=== PATIENT | male | born 1945 ===

== ENCOUNTER 2025-06-05 18:54 | Inpatient (IN) | payer MEDICARE, OTHER ==
[~2025-06-05] VITALS: Ht 167.6 cm; Wt 76.7 kg
[~2025-06-05 18:54] MED LIST: AMIO400T5 PO; DILT30TA35 PO; INSU100I19 SQ; INSU100V11 SQ; METO50TA16 PO; SEVE800T8 PO; TRAM50TA PO
[2025-06-05] MEDS ORDERED: ONDANSETRON 4 MG/2 ML VIAL ONE (20:39)
[2025-06-05] MEDS ORDERED: MORPHINE SULFATE 2 MG/1 ML DISP.SYRIN ONE (20:40)
[2025-06-05 20:48] LABS: PLATELET COUNT (AUTO) 156 K/uL (152-348); RED BLOOD CELL COUNT(AUTO) 2.89 MIL/uL (4.06-5.63); RED CELL DISTRIBUTION WIDTH 16.2 % (12.1-16.2); WHITE BLOOD COUNT (AUTO) 7.7 K/uL (3.6-10.2)
[2025-06-05] MEDS: MORPHINE SULFATE 2 MG/1 ML DISP.SYRIN IV ONE (20:49)
[2025-06-05] MEDS: ONDANSETRON 4 MG/2 ML VIAL IV ONE (20:49)
[2025-06-05] MEDS: AMIODARONE HCL IV 150 MG in IV DEXTROSE 5% 100 ML IV ONE (20:58)
[2025-06-05 21:04] LABS: ASPARTATE AMINOTRANSFERASE 6 U/L (15-37); CREATININE 5.0 mg/dL (0.6-1.3); SODIUM SERUM 137 mmol/L (136-145); TOTAL PROTEIN, SERUM 8.0 g/dL (6.4-8.2); UREA NITROGEN, BLOOD 48 mg/dL (7-18)
[2025-06-05] MEDS ORDERED: AMIODARONE HCL 150 MG/3 ML VIAL IV ONE (21:07)
[2025-06-05] MEDS: AMIODARONE HCL IV 450 MG in IV DEXTROSE 5% 250 ML IV PRN (21:27)
[2025-06-05] MEDS ORDERED: VASOPRESSIN 20 UNIT/ML VIAL ONE (23:45)
[2025-06-05] MEDS: VASOPRESSIN 20 UNIT in IV NORMAL SALINE 40 ML IV PRN (23:57)
[2025-06-06] VITALS (95 sets, daily range): BP systolic 70–182; BP diastolic 19–140; TEMP 97.5–100.9; O2SAT 89–98
[2025-06-06] MEDS ORDERED: LACT10SO58 PO (00:42)
[2025-06-06] MEDS ORDERED: LEVO150T8 PO (00:42)
[2025-06-06] MEDS ORDERED: MEGE40TA7 PO (00:42)
[2025-06-06] MEDS ORDERED: LINA5TAB PO (00:42)
[2025-06-06] MEDS ORDERED: LEVO250T59 PO (00:42)
[2025-06-06] MEDS ORDERED: METO-356 PO (00:42)
[2025-06-06] MEDS ORDERED: FERR236T3 PO (00:42)
[2025-06-06] MEDS ORDERED: APIX2.5T PO (01:38)
[2025-06-06] MEDS ORDERED: NOREPINEPHRINE 8MG/NS 250ML 250 ML IV ONE (01:40)
[2025-06-06] MEDS ORDERED: PIPERACILLIN/TAZOBACTAM/D5W 50 ML IV ONE (01:40)
[2025-06-06] MEDS: NOREPINEPHRINE 8MG/NS 250ML 250 ML IV PRN ×3 (01:54→21:29)
[2025-06-06] MEDS: PIPERACILLIN SODIUM/TAZOBACTAM 3.375 G in IV DEXTROSE 5% 50 ML IV ONE (01:54)
[2025-06-06] MEDS ORDERED: AMIODARONE HCL 150 MG/3 ML VIAL IV ONE (03:09)
[2025-06-06] MEDS ORDERED: NOREPINEPHRINE BITARTRATE 8 MG in IV NORMAL SALINE 250 ML IV PRN (03:30)
[2025-06-06] MEDS: AMIODARONE HCL IV 450 MG in IV DEXTROSE 5% 250 ML IV PRN ×2 (03:50→07:44)
[2025-06-06] MEDS ORDERED: VANCOMYCIN HCL 1,500 MG in IV DEXTROSE 5% 500 ML IV ONE (04:15)
[2025-06-06 05:35] LABS: PLATELET COUNT (AUTO) 175 K/uL (152-348); RED BLOOD CELL COUNT(AUTO) 2.96 MIL/uL (4.06-5.63); RED CELL DISTRIBUTION WIDTH 16.3 % (12.1-16.2); WHITE BLOOD COUNT (AUTO) 8.3 K/uL (3.6-10.2)
[2025-06-06 05:42] LABS: CREATININE 5.5 mg/dL (0.6-1.3); SODIUM SERUM 135 mmol/L (136-145); UREA NITROGEN, BLOOD 60 mg/dL (7-18)
[2025-06-06] MEDS ORDERED: VANCOMYCIN HCL 500 MG VIAL ONE (06:30)
[2025-06-06] MEDS ORDERED: VANCOMYCIN 1000 MG VIAL ONE (06:30)
[2025-06-06] MEDS: SEVELAMER CARBONATE 800 MG TABLET PO SCH ×2 (08:41→12:37)
[2025-06-06] MEDS: LACTULOSE 20 G/30 ML LIQUID UDC PO SCH (08:43)
[2025-06-06] MEDS ORDERED: MEGESTROL ACETATE 20 MG TABLET PO SCH (09:00)
[2025-06-06] MEDS ORDERED: APIXABAN 2.5 MG TABLET PO SCH (09:00)
[2025-06-06] MEDS ORDERED: RIFAXIMIN 550 MG TABLET PO SCH (09:00)
[2025-06-06] MEDS ORDERED: LEVOTHYROXINE SODIUM 150 MCG TABLET PO SCH (09:00)
[2025-06-06] MEDS: ALBUMIN HUMAN 25% (12.5 GM/50 ML ) BOTTLE IV ONE (09:21)
[2025-06-06] MEDS ORDERED: AMIO100T4 PO (11:20)
[2025-06-06] MEDS ORDERED: FERR324T4 PO (11:21)
[2025-06-06] MEDS ORDERED: VITA-287 PO (11:24)
[2025-06-06] MEDS ORDERED: THIA100T74 PO (11:25)
[2025-06-06] MEDS ORDERED: FOLI0.8T43 PO (11:25)
[2025-06-06] MEDS ORDERED: ALBU8.5H8 INH (11:44)
[2025-06-06] MEDS: FOLIC ACID/VITAMIN B COMP W-C TABLET PO SCH (12:36)
[2025-06-06] MEDS: THIAMINE HCL 100 MG TABLET PO SCH (12:37)
[2025-06-06] MEDS: ACETAMINOPHEN 500 MG TABLET PO PRN (14:05)
[2025-06-06] MEDS: LEVOTHYROXINE SODIUM 150 MCG TABLET PO SCH (14:05)
[2025-06-06 15:13] LABS: PROTEIN, BODY FLUID 4.8 G/DL
[2025-06-06 15:25] LABS: TOTAL VOLUME,BODY FLUID 2500 mL; WBC, BODY FLUID 15422 /cu. mm (0-200/cu.mm)
[2025-06-06 16:08] LABS: MONOCYTES,BODY FLUID 2 %
[2025-06-06] MEDS: VANCOMYCIN IV 1,000 MG in IV DEXTROSE 5% 250 ML IV ONE (16:18)
[2025-06-06] MEDS ORDERED: ALBUMIN HUMAN 25% 100 ML IV ONE (17:15)
[2025-06-06] MEDS: ALBUMIN HUMAN 25% 100 ML IV ONE (18:02)
[2025-06-06] MEDS: APIXABAN 2.5 MG TABLET PO SCH (21:00)
[2025-06-06] MEDS ORDERED: CEFEPIME HCL 1 G VIAL ONE (23:09)
[2025-06-06] MEDS: CEFEPIME HCL 1 GM in IV DEXTROSE 5% 100 ML IV SCH (23:16)
[2025-06-07] VITALS (57 sets, daily range): BP systolic 88–154; BP diastolic 14–82; TEMP 98.2–100; O2SAT 88–98
[2025-06-07] MEDS ORDERED: PIPERACILLIN/TAZO 2.25 G in IV DEXTROSE 5% 50 ML IV SCH (02:00)
[2025-06-07 05:27] LABS: CREATININE 6.6 mg/dL (0.6-1.3); SODIUM SERUM 134 mmol/L (136-145)
[2025-06-07 05:28] LABS: PLATELET COUNT (AUTO) 188 K/uL (152-348); RED BLOOD CELL COUNT(AUTO) 3.15 MIL/uL (4.06-5.63); RED CELL DISTRIBUTION WIDTH 16.2 % (12.1-16.2); WHITE BLOOD COUNT (AUTO) 10.7 K/uL (3.6-10.2)
[2025-06-07 05:47] LABS: UREA NITROGEN, BLOOD 82 mg/dL (7-18)
[2025-06-07 06:01] LABS: BAND % (MANUAL) 1 % (0-10); LYMPHOCYTES % (MANUAL) 10 % (20-40); NEUTROPHILS % (MANUAL) 89 % (42-75)
[2025-06-07 06:02] LABS: PLATELET ESTIMATE ADEQUATE
[2025-06-07] MEDS ORDERED: DEXTROSE 50% 50 ML DISP.SYRIN IV PRN (08:00)
[2025-06-07] MEDS: BLOOD SUGAR DIAGNOSTIC 1 EACH STRIP VI SCH (11:30)
[2025-06-07] MEDS ORDERED: VANCOMYCIN IV 500 MG in IV DEXTROSE 5% 100 ML IV PRN (12:00)
[2025-06-07] MEDS: MEGESTROL ACETATE 20 MG TABLET PO PRN (13:30)
[2025-06-07] MEDS: VANCOMYCIN IV 500 MG in IV DEXTROSE 5% 100 ML IV ONE (16:07)
[2025-06-07] MEDS: ONDANSETRON 4 MG/2 ML VIAL IV PRN (16:33)
[2025-06-07] MEDS: INSULIN REGULAR, HUMAN 1000 UNIT/10 ML VIAL SQ PRN (18:35)
[2025-06-07] MEDS: CEFEPIME (MAXEPIME) 1 G in IV DEXTROSE 5% 50 ML IV SCH (22:26)
[2025-06-08] VITALS (25 sets, daily range): BP systolic 94–133; BP diastolic 54–71; TEMP 97.5–99.1; O2SAT 88–100
[2025-06-08 05:19] LABS: PLATELET COUNT (AUTO) 153 K/uL (152-348); RED BLOOD CELL COUNT(AUTO) 2.96 MIL/uL (4.06-5.63); RED CELL DISTRIBUTION WIDTH 16.3 % (12.1-16.2); WHITE BLOOD COUNT (AUTO) 10.1 K/uL (3.6-10.2)
[2025-06-08 05:32] LABS: CREATININE 5.0 mg/dL (0.6-1.3); SODIUM SERUM 144 mmol/L (136-145); UREA NITROGEN, BLOOD 68 mg/dL (7-18)
[2025-06-08] MEDS: NEPRO (VANILLA) 237 ML CAN PO SCH (08:36)
[2025-06-08] MEDS: METOPROLOL TARTRATE 25 MG TABLET PO SCH (08:36)
[2025-06-08] MEDS: LINAGLIPTIN 5 MG TABLET PO SCH (09:54)
[2025-06-09 00:44] VITALS: BP 115/54; TEMP 98; O2SAT 97
[2025-06-09 04:52] VITALS: BP 108/55; TEMP 97.7; O2SAT 93
[2025-06-09 07:21] LABS: PLATELET COUNT (AUTO) 160 K/uL (152-348); RED BLOOD CELL COUNT(AUTO) 2.96 MIL/uL (4.06-5.63); RED CELL DISTRIBUTION WIDTH 16.6 % (12.1-16.2); WHITE BLOOD COUNT (AUTO) 9.9 K/uL (3.6-10.2)
[2025-06-09 07:35] LABS: CREATININE 4.3 mg/dL (0.6-1.3); SODIUM SERUM 141 mmol/L (136-145); UREA NITROGEN, BLOOD 60 mg/dL (7-18)
[2025-06-09 07:56] VITALS: BP 114/51; TEMP 97.8; O2SAT 94
[2025-06-09 11:30] VITALS: BP 94/48; TEMP 98.1; O2SAT 97
[2025-06-09 15:27] VITALS: BP 100/54; TEMP 98.4; O2SAT 96
[2025-06-09] MEDS: NEPRO (VANILLA) 237 ML CAN PO SCH (16:56)
[2025-06-09 19:00] VITALS: BP 101/53; TEMP 97.6; O2SAT 94
[2025-06-10] VITALS (7 sets, daily range): BP systolic 93–109; BP diastolic 38–67; TEMP 98.1–99; O2SAT 94–100
[2025-06-10 04:09] LABS: HEPATITIS B SURFACE AG Negative (Negative)
[2025-06-10 05:10] LABS: HEPATITIS B CORE AB, TOTAL Negative (Negative); HEPATITIS B SURFACE AB, QUAL Reactive (.)
[2025-06-10] MEDS: NEPRO (VANILLA) 237 ML CAN PO SCH (09:42)
[2025-06-10] MEDS: METOPROLOL TARTRATE 25 MG TABLET PO SCH (21:17)
[2025-06-11 05:40] VITALS: BP 94/49; TEMP 97.8; O2SAT 91
[2025-06-11 10:02] LABS: PLATELET COUNT (AUTO) 174 K/uL (152-348); RED BLOOD CELL COUNT(AUTO) 2.95 MIL/uL (4.06-5.63); RED CELL DISTRIBUTION WIDTH 16.7 % (12.1-16.2); WHITE BLOOD COUNT (AUTO) 10.7 K/uL (3.6-10.2)
[2025-06-11 10:11] LABS: CREATININE 4.5 mg/dL (0.6-1.3); SODIUM SERUM 145 mmol/L (136-145); UREA NITROGEN, BLOOD 63 mg/dL (7-18)
[2025-06-11 11:32] VITALS: BP 110/62; TEMP 98.3; O2SAT 94
[2025-06-11 16:00] VITALS: BP 115/61; TEMP 98.6; O2SAT 94
[2025-06-11 19:50] VITALS: BP 104/64; TEMP 99.2; O2SAT 99
[2025-06-12 00:54] VITALS: O2SAT 97
[2025-06-12 06:29] VITALS: BP 97/53; TEMP 97.4; O2SAT 95
[2025-06-12 08:01] LABS: PLATELET COUNT (AUTO) 160 K/uL (152-348); RED BLOOD CELL COUNT(AUTO) 2.70 MIL/uL (4.06-5.63); RED CELL DISTRIBUTION WIDTH 16.4 % (12.1-16.2); WHITE BLOOD COUNT (AUTO) 11.2 K/uL (3.6-10.2)
[2025-06-12] MEDS: LACTULOSE 20 G/30 ML LIQUID UDC PO SCH (08:29)
[2025-06-12] MEDS: INSULIN REGULAR, HUMAN 1000 UNIT/10 ML VIAL SQ PRN (08:42)
[2025-06-12] MEDS: METOPROLOL TARTRATE 25 MG TABLET PO SCH (09:00)
[2025-06-12] MEDS ORDERED: DEXTROSE 50% 50 ML DISP.SYRIN IV PRN (11:30)
[2025-06-12] MEDS ORDERED: INSULIN REGULAR, HUMAN 300 UNITS/3 ML VIAL SQ PRN (11:30)
[2025-06-12] MEDS: BLOOD SUGAR DIAGNOSTIC 1 EACH STRIP VI SCH (11:36)
[2025-06-12 12:00] VITALS: BP 92/44; TEMP 97.7; O2SAT 97
[2025-06-12] MEDS: MEDIHONEY= THERAHONEY 1.5 OZ TUBE TOP SCH (13:49)
[2025-06-12 16:00] VITALS: BP 114/58; TEMP 98; O2SAT 99
[2025-06-12 17:18] LABS: CREATININE 5.9 mg/dL (0.6-1.3); SODIUM SERUM 142 mmol/L (136-145)
[2025-06-12 17:19] LABS: UREA NITROGEN, BLOOD 84 mg/dL (7-18)
[2025-06-12] MEDS ORDERED: NOREPINEPHRINE 8MG/NS 250ML 250 ML IV PRN (20:30)
[2025-06-12 21:22] LABS: ABG BASE EXCESS -1.9 mmol/L (-2.0-3.0); ABG HCO3 20.1 mmol/L (21.0-28.0); ABG PCO2 26.4 mmHg (35.0-48.0); ABG PH 7.499 (7.350-7.450); ABG PO2 273.3 mmHg (83.0-108.0); ABG SITE LEFT BRACHIAL; ABG TOTAL HEMOGLOBIN 12.0 G/dL (13.5-17.5); AaDO2 99.7 mmHg; FIO2 100.0 %; FLOW, BLOOD GAS 15.00 L/min (0.00-30.00)
[2025-06-12] MEDS: VANCOMYCIN IV 1,000 MG in IV DEXTROSE 5% 250 ML IV ONE (21:30)
[2025-06-12] MEDS: AMIODARONE HCL IV 150 MG in IV DEXTROSE 5% 100 ML IV ONE (21:45)
[2025-06-12] MEDS: VASOPRESSIN 40 UNIT in IV NORMAL SALINE 40 ML IV PRN (22:42)
[2025-06-12] MEDS: NOREPINEPHRINE 8MG/NS 250ML 250 ML IV PRN (22:57)
[2025-06-13] VITALS (78 sets, daily range): BP systolic 64–149; BP diastolic 16–104; TEMP 98–100; O2SAT 94–100
[2025-06-13 01:03] LABS: ABG BASE EXCESS -1.5 mmol/L (-2.0-3.0); ABG HCO3 21.0 mmol/L (21.0-28.0); ABG PCO2 29.3 mmHg (35.0-48.0); ABG PH 7.473 (7.350-7.450); ABG PO2 90.2 mmHg (83.0-108.0); ABG SITE ALINE; ABG TOTAL HEMOGLOBIN 13.5 G/dL (13.5-17.5); AaDO2 97.5 mmHg; FIO2 32.0 %; FLOW, BLOOD GAS 3.00 L/min (0.00-30.00)
[2025-06-13] MEDS ORDERED: VANCOMYCIN IV 200 ML ONE (02:18)
[2025-06-13] MEDS: AMIODARONE HCL IV 450 MG in IV DEXTROSE 5% 250 ML IV PRN (03:13)
[2025-06-13 08:36] LABS: PLATELET COUNT (AUTO) 240 K/uL (152-348); RED BLOOD CELL COUNT(AUTO) 3.69 MIL/uL (4.06-5.63); RED CELL DISTRIBUTION WIDTH 16.9 % (12.1-16.2); WHITE BLOOD COUNT (AUTO) 20.4 K/uL (3.6-10.2)
[2025-06-13 08:49] LABS: ASPARTATE AMINOTRANSFERASE 30 U/L (15-37); CREATININE 7.1 mg/dL (0.6-1.3); SODIUM SERUM 141 mmol/L (136-145); TOTAL PROTEIN, SERUM 6.6 g/dL (6.4-8.2)
[2025-06-13 08:54] LABS: UREA NITROGEN, BLOOD 98 mg/dL (7-18)
[2025-06-13 08:56] LABS: LACTIC ACID 3.9 mmol/L (0.4-2.0)
[2025-06-13] MEDS: METRONIDAZOLE 500 MG/NS 100ML 500 MG in PREMIXED 1 EACH IV SCH (11:14)
[2025-06-13] MEDS ORDERED: VANCOMYCIN IV 500 MG in IV DEXTROSE 5% 100 ML IV PRN (14:15)
[2025-06-13 14:19] LABS: BAND % (MANUAL) 42 % (0-10); NEUTROPHILS % (MANUAL) 45 % (42-75)
[2025-06-13 14:20] LABS: LYMPHOCYTES % (MANUAL) 3 % (20-40); MONOCYTES % (MANUAL) 6 % (2-10)
[2025-06-13 14:21] LABS: METAMYELOCYTES % 4 % (0-1); PLATELET ESTIMATE ADEQUATE
[2025-06-13] MEDS: PHENYLEPHRINE IV 100 MG in IV NORMAL SALINE 240 ML IV PRN (15:18)
[2025-06-13] MEDS: ACETAMINOPHEN 325 MG SUPP RC PRN (16:16)
[2025-06-13] MEDS ORDERED: MORPHINE SULFATE 2 MG/1 ML DISP.SYRIN IV PRN (17:45)
[2025-06-13] MEDS ORDERED: DIATR MEGLU/DIATRIZOATE SODIUM 30 ML BOTTLE ONE ×2 (17:59→23:17)
[2025-06-13] MEDS: PANTOPRAZOLE SODIUM 40 MG VIAL IV SCH (21:40)
[2025-06-13] MEDS: MEROPENEM 500 MG in IV NORMAL SALINE 50 ML IV ONE (22:30)
[2025-06-13] MEDS ORDERED: MEROPENEM 500MG/NS 50ML PB ***ER PYXIS ONLY IV ONE (22:51)
[2025-06-13] MEDS ORDERED: IV NORMAL SALINE 250 ML IV ONE (23:17)
[2025-06-13] MEDS ORDERED: IOHEXOL 300MG/ML 100 ML INFUS..BTL ONE (23:17)
[2025-06-13] MEDS ORDERED: SWABABLE VALVE TRANSFER SET EA MC ONE (23:17)
[2025-06-14] VITALS (100 sets, daily range): BP systolic 80–150; BP diastolic 17–85; TEMP 97.9–100; O2SAT 86–100
[2025-06-14 08:01] LABS: PLATELET COUNT (AUTO) 212 K/uL (152-348); RED BLOOD CELL COUNT(AUTO) 3.17 MIL/uL (4.06-5.63); RED CELL DISTRIBUTION WIDTH 17.2 % (12.1-16.2); WHITE BLOOD COUNT (AUTO) 23.2 K/uL (3.6-10.2)
[2025-06-14 08:11] LABS: SODIUM SERUM 140 mmol/L (136-145)
[2025-06-14 08:24] LABS: CREATININE 7.8 mg/dL (0.6-1.3); UREA NITROGEN, BLOOD 110 mg/dL (7-18)
[2025-06-14] MEDS: MEROPENEM 500 MG in IV NORMAL SALINE 50 ML IV SCH (13:57)
[2025-06-14] MEDS ORDERED: TPN/PPN PER PHARMACY IV PRN (16:45)
[2025-06-14] MEDS ORDERED: DEXTROSE 50% 50 ML DISP.SYRIN IV PRN (17:15)
[2025-06-14] MEDS: IV 10% DEXTROSE 1,000 ML IV PRN (17:23)
[2025-06-14] MEDS: BLOOD SUGAR DIAGNOSTIC 1 EACH STRIP VI SCH (17:47)
[2025-06-14] MEDS: INSULIN REGULAR, HUMAN 1000 UNIT/10 ML VIAL SQ PRN (17:52)
[2025-06-14] MEDS ORDERED: BLOOD SUGAR DIAGNOSTIC 1 EACH STRIP VI SCH (18:00)
[2025-06-15] VITALS (96 sets, daily range): BP systolic 91–140; BP diastolic 23–55; TEMP 97.2–99.8; O2SAT 87–100
[2025-06-15] MEDS ORDERED: ACETAMINOPHEN 325 MG SUPP ONE (00:57)
[2025-06-15 05:14] LABS: PLATELET COUNT (AUTO) 178 K/uL (152-348); RED BLOOD CELL COUNT(AUTO) 2.92 MIL/uL (4.06-5.63); RED CELL DISTRIBUTION WIDTH 16.9 % (12.1-16.2); WHITE BLOOD COUNT (AUTO) 17.4 K/uL (3.6-10.2)
[2025-06-15 05:32] LABS: ASPARTATE AMINOTRANSFERASE 36 U/L (15-37); CREATININE 5.6 mg/dL (0.6-1.3); TOTAL PROTEIN, SERUM 6.7 g/dL (6.4-8.2); UREA NITROGEN, BLOOD 68 mg/dL (7-18)
[2025-06-15 05:37] LABS: SODIUM SERUM 144 mmol/L (136-145)
[2025-06-15] MEDS: ALBUMIN HUMAN 25% 100 ML IV SCH (06:50)
[2025-06-15] MEDS: HYDROMORPHONE 1 MG/1 ML DISP.SYRIN IV PRN (10:36)
[2025-06-15] MEDS ORDERED: TPN BAG #1 IV SCH (15:00)
[2025-06-15] MEDS: TPN BAG #1 IV SCH (17:12)
[2025-06-15] MEDS: VANCOMYCIN IV 500 MG in IV DEXTROSE 5% 100 ML IV ONE (22:26)
[2025-06-16] VITALS (101 sets, daily range): BP systolic 99–145; BP diastolic 12–64; TEMP 98.3–99.8; O2SAT 96–100
[2025-06-16 05:27] LABS: PLATELET COUNT (AUTO) 157 K/uL (152-348); RED BLOOD CELL COUNT(AUTO) 2.88 MIL/uL (4.06-5.63); RED CELL DISTRIBUTION WIDTH 17.1 % (12.1-16.2); WHITE BLOOD COUNT (AUTO) 14.0 K/uL (3.6-10.2)
[2025-06-16 05:33] LABS: CREATININE 4.4 mg/dL (0.6-1.3); SODIUM SERUM 143 mmol/L (136-145); UREA NITROGEN, BLOOD 51 mg/dL (7-18)
[2025-06-16] MEDS ORDERED: POTASSIUM CHLORIDE 20 MEQ TAB.PRT.SR PO ONE (07:15)
[2025-06-16] MEDS ORDERED: POTASSIUM CHLORIDE 50 ML IV SCH (08:00)
[2025-06-16] MEDS: TPN BAG #2 IV SCH (08:05)
[2025-06-16] MEDS: LEVOTHYROXINE SODIUM 100 MCG VIAL IV SCH (08:10)
[2025-06-16] MEDS ORDERED: LIDOCAINE HCL 1% 20 ML VIAL ONE (08:50)
[2025-06-16] MEDS ORDERED: PROPOFOL 200 MG/20 ML BOTTLE ONE (09:00)
[2025-06-16] MEDS ORDERED: VASOPRESSIN 20 UNIT/ML VIAL ONE (09:08)
[2025-06-16] MEDS ORDERED: FENTANYL CITRATE 100 MCG/2 ML AMPUL ONE (09:08)
[2025-06-16] MEDS: POTASSIUM CHLORIDE 50 ML IV SCH (09:30)
[2025-06-16] MEDS: IV FAT EMULSIONS 20% 250 ML in PREMIXED 1 EACH IV SCH (12:05)
[2025-06-16] MEDS: HYDROMORPHONE 1 MG/1 ML DISP.SYRIN IV PRN (13:02)
[2025-06-16] MEDS ORDERED: VANCOMYCIN IV 500 MG in IV DEXTROSE 5% 100 ML IV ONE (16:00)
[2025-06-16] MEDS: TPN BAG #3 IV SCH (21:07)
[2025-06-17] VITALS (98 sets, daily range): BP systolic 98–141; BP diastolic 40–74; TEMP 97.6–98.6; O2SAT 96–100
[2025-06-17 04:29] LABS: PLATELET COUNT (AUTO) 145 K/uL (152-348); RED BLOOD CELL COUNT(AUTO) 2.88 MIL/uL (4.06-5.63); RED CELL DISTRIBUTION WIDTH 17.3 % (12.1-16.2); WHITE BLOOD COUNT (AUTO) 12.3 K/uL (3.6-10.2)
[2025-06-17 04:41] LABS: CREATININE 5.2 mg/dL (0.6-1.3); SODIUM SERUM 143 mmol/L (136-145); UREA NITROGEN, BLOOD 70 mg/dL (7-18)
[2025-06-17] MEDS: PPN BAG #4 IV SCH (08:45)
[2025-06-17] MEDS: POTASSIUM CHLORIDE 50 ML IV SCH (09:19)
[2025-06-17] MEDS: VANCOMYCIN IV 500 MG in IV DEXTROSE 5% 100 ML IV ONE (15:20)
[2025-06-17] MEDS: PPN BAG #5 IV SCH (18:06)
[2025-06-18] VITALS (94 sets, daily range): BP systolic 99–140; BP diastolic 38–63; TEMP 97.3–98.9; O2SAT 96–100
[2025-06-18] MEDS: PPN BAG #6 IV SCH (04:04)
[2025-06-18 05:31] LABS: PLATELET COUNT (AUTO) 173 K/uL (152-348); RED BLOOD CELL COUNT(AUTO) 2.99 MIL/uL (4.06-5.63); RED CELL DISTRIBUTION WIDTH 16.9 % (12.1-16.2); WHITE BLOOD COUNT (AUTO) 15.8 K/uL (3.6-10.2)
[2025-06-18 05:42] LABS: CREATININE 4.1 mg/dL (0.6-1.3); SODIUM SERUM 138 mmol/L (136-145); UREA NITROGEN, BLOOD 57 mg/dL (7-18)
[2025-06-18 06:15] LABS: EOSINOPHILS % (MANUAL) 1 % (0-8); LYMPHOCYTES % (MANUAL) 4 % (20-40); MONOCYTES % (MANUAL) 8 % (2-10); NEUTROPHILS % (MANUAL) 87 % (42-75); PLATELET ESTIMATE ADEQUATE
[2025-06-18] MEDS: TPN#7 IV SCH (13:48)
[2025-06-18] MEDS: AMIODARONE HCL 150 MG/3 ML VIAL IV ONE ×2 (17:31→17:32)
[2025-06-18] MEDS: LIDOCAINE HCL 1% 20 ML VIAL ONE (17:32)
[2025-06-18] MEDS: VASOPRESSIN 20 UNIT/ML VIAL ONE (17:32)
[2025-06-18] MEDS: MICAFUNGIN SODIUM 100 MG in IV NORMAL SALINE 100 ML IV SCH (18:43)
[2025-06-19] VITALS (93 sets, daily range): BP systolic 94–144; BP diastolic 32–55; TEMP 97.2–98.6; O2SAT 84–100
[2025-06-19] MEDS: TPN #8 IV SCH (04:13)
[2025-06-19 05:08] LABS: PLATELET COUNT (AUTO) 170 K/uL (152-348); RED BLOOD CELL COUNT(AUTO) 3.09 MIL/uL (4.06-5.63); RED CELL DISTRIBUTION WIDTH 16.8 % (12.1-16.2); WHITE BLOOD COUNT (AUTO) 13.8 K/uL (3.6-10.2)
[2025-06-19 05:25] LABS: CREATININE 5.0 mg/dL (0.6-1.3)
[2025-06-19 05:32] LABS: SODIUM SERUM 134 mmol/L (136-145)
[2025-06-19 05:35] LABS: UREA NITROGEN, BLOOD 85 mg/dL (7-18)
[2025-06-19 05:56] LABS: LYMPHOCYTES % (MANUAL) 2 % (20-40); MONOCYTES % (MANUAL) 7 % (2-10); MYELOCYTES % 1 % (0-0); NEUTROPHILS % (MANUAL) 90 % (42-75); PLATELET ESTIMATE ADEQUATE
[2025-06-19] MEDS: PPN BAG #9 IV SCH (10:34)
[2025-06-19] MEDS: IV FAT EMULSIONS 20% 250 ML in PREMIXED 1 EACH IV SCH (10:35)
[2025-06-19] MEDS: VANCOMYCIN IV 500 MG in IV DEXTROSE 5% 100 ML IV ONE (16:32)
[2025-06-19] MEDS: PPN BAG #10 IV SCH (19:42)
[2025-06-20] VITALS (69 sets, daily range): BP systolic 83–142; BP diastolic 33–81; TEMP 97.3–98.8; O2SAT 97–100
[2025-06-20 05:06] LABS: PLATELET COUNT (AUTO) 156 K/uL (152-348); RED BLOOD CELL COUNT(AUTO) 2.78 MIL/uL (4.06-5.63); RED CELL DISTRIBUTION WIDTH 16.9 % (12.1-16.2); WHITE BLOOD COUNT (AUTO) 10.5 K/uL (3.6-10.2)
[2025-06-20] MEDS: PPN BAG #11 IV SCH (05:21)
[2025-06-20 06:14] LABS: CREATININE 3.7 mg/dL (0.6-1.3); SODIUM SERUM 135 mmol/L (136-145); UREA NITROGEN, BLOOD 64 mg/dL (7-18)
[2025-06-20 06:30] LABS: BAND % (MANUAL) 1 % (0-10); LYMPHOCYTES % (MANUAL) 2 % (20-40); MONOCYTES % (MANUAL) 12 % (2-10); NEUTROPHILS % (MANUAL) 85 % (42-75); PLATELET ESTIMATE ADEQUATE
[2025-06-20] MEDS: POTASSIUM CHLORIDE 50 ML IV SCH (09:35)
[2025-06-20 09:37] LABS: ABG BASE EXCESS 2.8 mmol/L (-2.0-3.0); ABG HCO3 27.1 mmol/L (21.0-28.0); ABG PCO2 40.0 mmHg (35.0-48.0); ABG PH 7.448 (7.350-7.450); ABG PO2 96.7 mmHg (83.0-108.0); ABG SITE ALINE; ABG TOTAL HEMOGLOBIN 10.3 G/dL (13.5-17.5); AaDO2 97.6 mmHg; FIO2 28.0 %; FLOW, BLOOD GAS 2.00 L/min (0.00-30.00)
[2025-06-20] MEDS: ALBUMIN HUMAN 25% 100 ML IV ONE (15:43)
[2025-06-20] MEDS: PPN BAG #12 IV SCH (17:09)
[2025-06-20] MEDS: DAPTOMYCIN 500 MG in IV NORMAL SALINE 50 ML IV SCH (20:23)
[2025-06-20] MEDS ORDERED: LINEZOLID IV 600 MG in PREMIXED 1 EACH IV SCH (21:00)
[2025-06-21] VITALS (43 sets, daily range): BP systolic 108–144; BP diastolic 50–75; TEMP 97.6–98.4; O2SAT 95–100
[2025-06-21] MEDS: PPN IV SCH (02:11)
[2025-06-21 05:07] LABS: PLATELET COUNT (AUTO) 157 K/uL (152-348); RED BLOOD CELL COUNT(AUTO) 2.79 MIL/uL (4.06-5.63); RED CELL DISTRIBUTION WIDTH 17.2 % (12.1-16.2); WHITE BLOOD COUNT (AUTO) 10.2 K/uL (3.6-10.2)
[2025-06-21 05:31] LABS: ASPARTATE AMINOTRANSFERASE 21 U/L (15-37); CREATININE 4.7 mg/dL (0.6-1.3); SODIUM SERUM 132 mmol/L (136-145); TOTAL PROTEIN, SERUM 6.8 g/dL (6.4-8.2)
[2025-06-21 05:32] LABS: UREA NITROGEN, BLOOD 90 mg/dL (7-18)
[2025-06-21 06:09] LABS: LYMPHOCYTES % (MANUAL) 2 % (20-40); MONOCYTES % (MANUAL) 13 % (2-10); NEUTROPHILS % (MANUAL) 85 % (42-75); PLATELET ESTIMATE ADEQUATE
[2025-06-21] MEDS: TPN IV SCH (13:10)
[2025-06-21] MEDS: IV FAT EMULSIONS 20% 250 ML IV SCH (13:10)
[2025-06-22 01:19] LABS: PLATELET COUNT (AUTO) 158 K/uL (152-348); RED BLOOD CELL COUNT(AUTO) 2.78 MIL/uL (4.06-5.63); RED CELL DISTRIBUTION WIDTH 17.1 % (12.1-16.2); WHITE BLOOD COUNT (AUTO) 11.2 K/uL (3.6-10.2)
[2025-06-22 01:25] LABS: CREATININE 3.7 mg/dL (0.6-1.3); SODIUM SERUM 134 mmol/L (136-145); UREA NITROGEN, BLOOD 65 mg/dL (7-18)
[2025-06-22 01:30] LABS: ASPARTATE AMINOTRANSFERASE 26 U/L (15-37); TOTAL PROTEIN, SERUM 6.7 g/dL (6.4-8.2)
[2025-06-22 01:48] LABS: EOSINOPHILS % (MANUAL) 1 % (0-8); LYMPHOCYTES % (MANUAL) 3 % (20-40); MONOCYTES % (MANUAL) 10 % (2-10); NEUTROPHILS % (MANUAL) 86 % (42-75); PLATELET ESTIMATE ADEQUATE
[2025-06-22 05:09] VITALS: BP 143/56; TEMP 97.5; O2SAT 99
[2025-06-22 06:54] LABS: PLATELET COUNT (AUTO) 147 K/uL (152-348); RED BLOOD CELL COUNT(AUTO) 2.69 MIL/uL (4.06-5.63); RED CELL DISTRIBUTION WIDTH 17.5 % (12.1-16.2); WHITE BLOOD COUNT (AUTO) 11.8 K/uL (3.6-10.2)
[2025-06-22 07:05] LABS: ASPARTATE AMINOTRANSFERASE 34 U/L (15-37); CREATININE 3.7 mg/dL (0.6-1.3); SODIUM SERUM 133 mmol/L (136-145); TOTAL PROTEIN, SERUM 6.9 g/dL (6.4-8.2); UREA NITROGEN, BLOOD 74 mg/dL (7-18)
[2025-06-22 07:39] VITALS: BP 147/59; TEMP 98.1; O2SAT 99
[2025-06-22] MEDS: POTASSIUM CHLORIDE 50 ML IV SCH (08:22)
[2025-06-22 10:56] VITALS: BP 135/58; TEMP 98.6; O2SAT 98
[2025-06-22 11:29] LABS: ABG BASE EXCESS 2.2 mmol/L (-2.0-3.0); ABG HCO3 27.4 mmol/L (21.0-28.0); ABG PCO2 45.5 mmHg (35.0-48.0); ABG PH 7.398 (7.350-7.450); ABG PO2 112.5 mmHg (83.0-108.0); ABG SITE LEFT RADIAL; ABG TOTAL HEMOGLOBIN 10.2 G/dL (13.5-17.5); AaDO2 98.1 mmHg; FIO2 32.0 %
[2025-06-22 14:46] VITALS: O2SAT 99
[2025-06-22 15:42] VITALS: BP 126/51; TEMP 98.7; O2SAT 100
[2025-06-22 19:00] VITALS: BP 136/56; TEMP 97.6; O2SAT 99
[2025-06-23] VITALS (8 sets, daily range): BP systolic 113–130; BP diastolic 44–56; TEMP 97.5–98.6; O2SAT 96–100
[2025-06-23 06:54] LABS: PLATELET COUNT (AUTO) 173 K/uL (152-348); RED BLOOD CELL COUNT(AUTO) 2.59 MIL/uL (4.06-5.63); RED CELL DISTRIBUTION WIDTH 18.1 % (12.1-16.2); WHITE BLOOD COUNT (AUTO) 12.2 K/uL (3.6-10.2)
[2025-06-23 07:07] LABS: ASPARTATE AMINOTRANSFERASE 32 U/L (15-37); CREATININE 4.7 mg/dL (0.6-1.3); SODIUM SERUM 130 mmol/L (136-145); TOTAL PROTEIN, SERUM 6.9 g/dL (6.4-8.2)
[2025-06-23 07:10] LABS: UREA NITROGEN, BLOOD 96 mg/dL (7-18)
[2025-06-23] MEDS: LEVOTHYROXINE SODIUM 100 MCG VIAL IV SCH (08:33)
[2025-06-23] MEDS: AMIODARONE HCL 200 MG TABLET PO SCH (08:42)
[2025-06-23] MEDS: APIXABAN 2.5 MG TABLET PO SCH (08:45)
[2025-06-23] MEDS: POTASSIUM CHLORIDE 50 ML IV SCH (09:00)
[2025-06-23] MEDS ORDERED: EPOETIN ALFA 10,000 UNITS/ML VIAL SQ ONE (11:30)
[2025-06-23] MEDS: EPOETIN ALFA-EPBX 10,000 UNIT/ML VIAL SQ ONE (12:14)
[2025-06-23] MEDS: IV FAT EMULSIONS 20% 250 ML IV ONE (13:17)
[2025-06-23] MEDS ORDERED: SEVELAMER CARBONATE 800 MG TABLET PO ONE (13:30)
[2025-06-23] MEDS ORDERED: LINAGLIPTIN 5 MG TABLET PO ONE (13:31)
[2025-06-23] MEDS: ALBUTEROL SULFATE 2.5 MG/ 0.5 ML NEBU NEB ONE (14:53)
[2025-06-23] MEDS: IPRATROPIUM BROMIDE 0.5 MG/2.5 ML NEBU NEB ONE (14:53)
[2025-06-23 15:06] LABS: ABG BASE EXCESS 2.6 mmol/L (-2.0-3.0); ABG HCO3 28.0 mmol/L (21.0-28.0); ABG PCO2 47.1 mmHg (35.0-48.0); ABG PH 7.392 (7.350-7.450); ABG PO2 102.1 mmHg (83.0-108.0); ABG SITE LEFT BRACHIAL; ABG TOTAL HEMOGLOBIN 9.2 G/dL (13.5-17.5); AaDO2 97.6 mmHg; FIO2 32.0 %; FLOW, BLOOD GAS 3.00 L/min (0.00-30.00)
[2025-06-24] VITALS: BP 116/57; TEMP 97.5; O2SAT 98
[2025-06-24 04:00] VITALS: BP 133/55; TEMP 94; O2SAT 97
[2025-06-24 06:03] VITALS: O2SAT 99
[2025-06-24 06:23] LABS: PLATELET COUNT (AUTO) 188 K/uL (152-348); RED BLOOD CELL COUNT(AUTO) 2.81 MIL/uL (4.06-5.63); RED CELL DISTRIBUTION WIDTH 18.1 % (12.1-16.2); WHITE BLOOD COUNT (AUTO) 12.3 K/uL (3.6-10.2)
[2025-06-24 06:44] LABS: ASPARTATE AMINOTRANSFERASE 41 U/L (15-37); CREATININE 3.9 mg/dL (0.6-1.3); SODIUM SERUM 135 mmol/L (136-145); TOTAL PROTEIN, SERUM 7.6 g/dL (6.4-8.2); UREA NITROGEN, BLOOD 67 mg/dL (7-18)
[2025-06-24 07:31] VITALS: BP 116/54; TEMP 94.2; O2SAT 95
[2025-06-24] MEDS: LEVOTHYROXINE SODIUM 100 MCG VIAL IV SCH (09:25)
[2025-06-24] MEDS: NALOXONE HCL 0.4 MG/ML AMPUL IV ONE (10:06)
[2025-06-24] MEDS ORDERED: IV NORMAL SALINE 500 ML BAG IV ONE (10:45)
[2025-06-24] MEDS: ALBUMIN HUMAN 25% 50 ML IV ONE (10:47)
[2025-06-24] MEDS: IV NORMAL SALINE 500 ML IV ONE (10:47)
[2025-06-24] MEDS ORDERED: IV NORMAL SALINE 250 ML IV ONE (11:00)
== END 2025-06-24 10:56 | DRG 871 ==
LOC: ER 19:01 → CCU 06-06 03:00 → TELE3 06-08 10:32 → UNDODISIN 06-09 17:20 → MEDSURG3 06-10 11:35 → CCU 06-12 20:16 → TELE3 06-21 16:19 → MEDSURG3 06-23 09:15 → TELE3 06-23 14:30
PROVIDERS: ADMIT Registered Nurse Psychiatric/Mental Health; ATTEND Registered Nurse Psychiatric/Mental Health
PROC: 02HV33Z Insertion of Infusion Device into Superior Vena Cava, Percutaneous Approach (ICD-10-PCS; principal; 2025-06-06)
PROC: 0W9G3ZZ Drainage of Peritoneal Cavity, Percutaneous Approach (ICD-10-PCS; 2025-06-06)
PROC: 03H Upper Arteries, Insertion (ICD-10-PCS; 2025-06-13)
PROC: 0D9670Z Drainage of Stomach with Drainage Device, Via Natural or Artificial Opening (ICD-10-PCS; 2025-06-14)
PROC: 30243K1 Transfusion of Nonautologous Frozen Plasma into Central Vein, Percutaneous Approach (ICD-10-PCS; 2025-06-16)
PROC: 5A1D70Z Performance of Urinary Filtration, Intermittent, Less than 6 Hours Per Day (ICD-10-PCS; 2025-06-19)
DX: A41.9 Sepsis, unspecified organism (principal); E43 Unspecified severe protein-calorie malnutrition; K65.2 Spontaneous bacterial peritonitis; N18.6 End stage renal disease; J15.69 Pneumonia due to other Gram-negative bacteria; K65.1 Peritoneal abscess; R65.21 Severe sepsis with septic shock; I77.72 Dissection of iliac artery; C78.6 Secondary malignant neoplasm of retroperitoneum and peritoneum; B37.89 Other sites of candidiasis; Z66 Do not resuscitate; D68.9 Coagulation defect, unspecified; N39.0 Urinary tract infection, site not specified; Z99.2 Dependence on renal dialysis; D69.6 Thrombocytopenia, unspecified; I27.20 Pulmonary hypertension, unspecified; K74.60 Unspecified cirrhosis of liver; E11.22 Type 2 diabetes mellitus with diabetic chronic kidney disease; D64.9 Anemia, unspecified; Z95.2 Presence of prosthetic heart valve; R18.8 Other ascites; I47.20 Ventricular tachycardia, unspecified; T82.392A Other mechanical complication of femoral arterial graft (bypass), initial encounter; E88.09 Other disorders of plasma-protein metabolism, not elsewhere classified; I95.9 Hypotension, unspecified; I48.0 Paroxysmal atrial fibrillation; K57.90 Diverticulosis of intestine, part unspecified, without perforation or abscess without bleeding; I25.10 Atherosclerotic heart disease of native coronary artery without angina pectoris; E11.51 Type 2 diabetes mellitus with diabetic peripheral angiopathy without gangrene; E87.6 Hypokalemia; E87.70 Fluid overload, unspecified; E11.65 Type 2 diabetes mellitus with hyperglycemia; Z53.29 Procedure and treatment not carried out because of patient's decision for other reasons; Z79.01 Long term (current) use of anticoagulants; Z82.49 Family history of ischemic heart disease and other diseases of the circulatory system; Z86.79 Personal history of other diseases of the circulatory system; Z95.1 Presence of aortocoronary bypass graft; Z79.899 Other long term (current) drug therapy; Z79.84 Long term (current) use of oral hypoglycemic drugs; Z78.1 Physical restraint status
CPT/HCPCS: 36415; 36569; 36600; 70030-TC; 70450; 71045; 71250; 76705; 82803; 83605; 83735; 83986; 84100; 84155; 84443; 84478; 84484; 85025; 85610; 85730; 86704; 86706; 86850; 86900; 86901; 87040; 87070; 87077; 87205; 87340; 87350; 93005; 93307; 94664; 94760; 99082-TC; A4606; A4663; A6213; A9150; G0378; J0282; J0692; J0878; J0885; J1171; J1815; J2185; J2248; J2270; J2312; J2405; J2470; J2543; J3010; J3373; J3374; J3480; J3490; J3590; J7040; J7050; J7060; J7131; P9047; P9059; Q9963; Q9967